=== PATIENT | female | born 1980 | race Caucasian/White ===

== ENCOUNTER 2020-07-11 15:34 | Emergency (ER) | payer SELFPAY ==
[~2020-07-11] VITALS: Ht 160 cm; Wt 48.0 kg
[~2020-07-11 15:34] MED LIST: ATIVAN1 M1 PR; BUT/APAP/CA3 OR; CYCLOBENZAPR10 MG OR; FLEXERIL PO; FLEXERIL5 MG PO; PREMARIN0.625 MG PO; REQUIP0.5 MG PO; REQUIP2 MG OR; TOPAMAX50 M1 PO; TRAMADOL HCL50 MG OR; ULTRAM50 M1 PO; VISTARIL25 MG PO; ZITHROMAX250 MG PO
[2020-07-11 16:31] LABS: URINE BILIRUBIN - DIPSTICK NEGATIVE (NEGATIVE); URINE BLOOD DIPSTICK TRACE-INTACT (NEGATIVE); URINE COLOR YELLOW; URINE GLUCOSE - DIPSTICK 100 mg/dL (NEGATIVE); URINE KETONE NEGATIVE (NEGATIVE); URINE LEUK ESTERASE NEGATIVE (NEGATIVE); URINE NITRITE - DIPSTICK NEGATIVE (Negative); URINE PROTEIN - DIPSTICK NEGATIVE (NEG-TRACE); URINE SPECIFIC GRAVITY >=1.030; URINE UROBILINOGEN - DIPSTICK 0.2 E.U./dL (0.2)
[2020-07-11 16:54] LABS: HEMATOCRIT 37.5 % (37.0-47.0); HEMOGLOBIN 12.4 g/dl (12.0-16.0); IMMATURE GRANULOCYTES 0.4 % (0.0-5.0); MEAN CORPUSCULAR HGB 33.7 pG CALC (26.0-32.0); MEAN CORPUSCULAR HGB CONC 33.1 g/dL CAL (32.0-36.0); NEUT# 3.53 thou/uL (2.00-7.15); RED BLOOD COUNT 3.68 mill/uL (4.20-5.60); RED CELL DISTRI WIDTH 12.2 % (11.5-15.5)
[2020-07-11 17:01] LABS: ALKALINE PHOSPHATASE 50 u/l (38-126); AMYLASE 58 u/l (30-110); ANION GAP 10 (6-22 (CALC)); BUN 16 mg/dL (7-17); BUN/CREATININE RATIO 19 (12-20 (CALC)); CARBON DIOXIDE 26 mmol/l (22-30); CHLORIDE 106 mmol/l (95-108); CREATININE 0.8 mg/dL (0.5-1.0); GFR > 60 ML/MIN (>=60 (CALC)); GFR FOR AFR.AMER. > 60 ML/MIN (>=60 (CALC)); LIPASE 170 u/l (23-300); POTASSIUM 4.1 mmol/l (3.5-5.1); SGOT/AST 23 u/l (14-36); SODIUM 137 mmol/l (137-146); TOTAL PROTEIN 6.6 g/dL (6.3-8.2)
[2020-07-11 17:03] LABS: BILIRUBIN, TOTAL 0.2 mg/dL (0.0-1.4)
[2020-07-11 17:20] LABS: MEAN CELL VOLUME 101.9 fL CALC (80.0-100.0)
[2020-07-11 20:55] VITALS: BP 92/57
[2020-07-11] MEDS ORDERED: ZOFRAN4 MG/TAB PO (21:19)
[2020-07-11] MEDS ORDERED: ULTRAM50 MG PO (21:19)
== END 2020-07-11 21:30 | disposition home or self-care (01) | DRG 392 ==
LOC: ED 15:34
PROVIDERS: Emergency Medicine
DX: K59.00 Constipation, unspecified (principal); K83.8 Other specified diseases of biliary tract; R16.0 Hepatomegaly, not elsewhere classified; I10 Essential (primary) hypertension; F32.9 Major depressive disorder, single episode, unspecified; F41.9 Anxiety disorder, unspecified; F17.210 Nicotine dependence, cigarettes, uncomplicated; Z90.710 Acquired absence of both cervix and uterus
CPT/HCPCS: Q9967